=== PATIENT | male | born 1965 | race Caucasian/White ===

== ENCOUNTER → 2016-03-01 16:39 | Outpatient (CLI) | payer BC | END | disposition home or self-care (01) | LOC: D.LABREF 16:39 | DX: J32.0 Chronic maxillary sinusitis (principal) ==

== ENCOUNTER → 2016-03-18 12:32 | Outpatient (CLI) | payer BC | END | disposition home or self-care (01) | LOC: D.CT 12:32 | DX: I77.819 Aortic ectasia, unspecified site (principal) ==

== ENCOUNTER 2016-06-06 18:41 | Emergency (ER) | payer BC | END 2016-06-06 20:57 | disposition home or self-care (01) | LOC: D.ER 18:41 | DX: J06.9 Acute upper respiratory infection, unspecified (principal); J20.9 Acute bronchitis, unspecified; B34.9 Viral infection, unspecified; J43.9 Emphysema, unspecified ==

== ENCOUNTER 2016-06-09 15:37 | Inpatient (IN) | payer BC ==
[~2016-06-09] VITALS: Ht 180.3 cm; Wt 86.4 kg
--- NOTE | ~2016-06-09 | DS ---
PATIENT:FELIZ DENIS :65 MEDICAL RECORD: [id number] DISCHARGE SUMMARY ADMISSION DATE: 06/09/16 DISCHARGE DATE: 06/12/16 DISCHARGE DIAGNOSES: 1. DRESS syndrome. 2. Acute sulfonamide reaction. 3. Chronic obstructive pulmonary disease. 4. Pulmonary hilar lymphadenopathy, eosinophilia, cough-variant asthma, gastroesophageal reflux disease, febrile illness, resolved, hypertension, HLD, anemia. CONSULTANTS: Dr. Hastings ID, Dr. Gomez, pulmonary. HOSPITAL COURSE: A 50-year-old male admitted with severe cutaneous macular rash sparing palms and soles. Cough, 101 fever, abnormal chest x-ray. The patient appeared acutely ill on admission, was culture blood and urine, hydrated. He was seen by pulmonary and initially placed on broad-spectrum IV antibiotics. CT of the chest showed bilateral hilar adenopathy that was new from previous study. He was placed on high dose IV Solu-Medrol, seen in consultation by Dr. Hastings from infectious disease. She felt the patient could have delayed reaction to sulfonamide he had received a month prior to admission. Antibiotics were discontinued. The patient remained on IV steroids, has gradually improved. Interpretation of CT scan showed multiple pretracheal lymph nodes up to 8 mm in size, right hilar lymph nodes measuring 3.6 cm in size, left hilar nodes were 3cm in size, subcarinal node that was 5.8 cm in size with some atelectasis in the lung as well. In light of this, Dr. Bridges from CV surgery was consulted and he is aware of the patient. Our plan is to continue steroids for the next several weeks and repeat a CT of his chest in 4-6 weeks. Adenopathy is not resolved. We will proceed with a mediastinoscopy, biopsy of the paratracheal node. His lab today shows a white count of 14,000, H&H of 10.8 and 30.6. Chemistry is normal. Potassium is 3.7, corrected from 3.3. Blood sugar is 164 on steroids. Liver functions are normal. C-reactive protein was 23.5. Sed rate was 120 on admission. Urinalysis was negative. Microbiology showed blood and urine cultures negative. The patient was discharged today in improved condition on high dose steroids, followup with my office in [address] Gomez in [address] scan at that time. DISCHARGE MEDICATIONS: Are Ro 180 mg p.o. daily, nystatin oral suspension 5 cc swish and swallow q.i.d. for 10 days, Atarax 25 mg q. 6 hours p.r.n. itching, Restoril 15 mg p.o. h.s. p.r.n. sleep, prednisone 40 mg p.o. q. a.m., Cozaar 100 mg a day, pravastatin 80 mg at bedtime, guaifenesin with codeine 1-2 teaspoons q. 6 hours for severe cough, Tessalon Perles 100 mg t.i.d. p.r.n. cough, Singulair 10 mg at h.s., Proventil HFA rescue inhaler, DuoNeb updrafts q. 6 hours p.r.n., TriCor 145 mg daily, Prevacid 30 mg b.i.d., Dulera 100/5 two puffs b.i.d. DIET: Low cholesterol. ACTIVITY: Off work for 1 week. See me next Tuesday a.m. TRANSINT:[id number] Voice Confirmation ID: [id number] DOCUMENT ID: [id number] DISCHARGE SUMMARY REPORT [id number] FELIZ DENIS TIMOTHY MD CC: [id number] DICTATION DATE: 06/12/16 0804 FUR POINTER: 06/12/16 1446 DIS IN 06/12/16 [facility] [address] [id number]
--- NOTE | ~2016-06-09 | HP ---
PATIENT: FELIZ DENIS MEDICAL RECORD: [id number] ACCOUNT: [id number] LOCATION:[facility] : [birth year] ADMISSION DATE: 06/09/16 HISTORY AND PHYSICAL EXAMINATION REASON FOR ADMISSION: Fever, cough and rash. HISTORY OF PRESENT ILLNESS: 50-year old white male with COPD. Over the last year he has had chronic cough and exertional shortness of breath. He has seen a pulmonologisgt in [place], [place] who diagnosed him with COPD. He had also been treated for recurrent sinusitis by Dr. Yared Weinstein with 1 month of doxycycline and 1 month of Bactrim-DS that ended a month ago. Bryce says he had an abnormal CT scan of his sinus but those results are not available. None the less he developed a puritic rash on his hands and trunk about a week ago associated with cough and 101 fever for the last 4 days. His cough had increased. He was prescribed Phenergan with codeine for cough. A chest x-ray showed patchy perihilar densities a few days ago. He has not had any antibiotics recently. He symptoms have progressed and is seen in the office for this reason today. The patient appeared obviously ill, was febrile and had coke colored urine. He is admitted to the hospital for perihilar pneumonia, fever, atypical rash with pulmonary and ID workup. He has had some nausea but no vomiting or diarrhea. Denies any recent tick bites, exposure to wild rodents or animals. He used to smoke with over a 60 pack year history, but quit 9 years ago. PAST MEDICAL HISTORY: Essential hypertension, allergic rhinitis, COPD, hyperlipidemia, hypogonadism, history of anxiety and depression. History of proteinuria. PAST SURGICAL HISTORY: Negative. FAMILY HISTORY: Father had CAD. Brother age 55, had heart disease. Mother appearing in good health. SOCIAL HISTORY: He does not use alcohol. 60 plus pack year history of smoking, quit 9 years ago. 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 ALLERGIES: AMOXICILLIN, EGGS, HYDROCODONE, AND LISINOPRIL CAUSES COUGH. MEDICATIONS: Singulair 10 mg with evening meal, Flonase nasal spray daily, Zyrtec 10 mg a day, losartan 100/25 mg 1 p.o. q.a.m., fenofibrate 145 mg p.o. daily, ProAir HFA 1-2 puffs q.6 hours p.r.n., Bromfed syrup for cough one t.i.d. p.r.n. cough, lansoprazole capsule 30 mg p.o. daily. REVIEW OF SYSTEM: VITAL SIGNS: Temperature 101 degrees Fahrenheit for the few days. GENERAL: He has felt fatigued with poor appetite. HEENT: No recent visual change, sinus congestion, or sore throat or hearing difficulty. RESPIRATORY: Dry cough, minimally productive. He has been short of breath on exertion. He has noticed some wheezing as well. GASTROINTESTINAL: He has had nauses without vomiting or diarrhea. He has dyspepsia chronically. ENDOCRINE: Denies polyuria, polydipsia, heat or cold intolerance. MUSCULOSKELETAL: Has had arthralgias in his low back since fever occurred. HISTORY AND PHYSICAL [id number] FELIZ DENIS : Nocturia once nightly. Admits to ED issues. PSYCH: No depressed mood currently. NEUROLOGICAL: Has intermittent headache but not severe. Denies any motor sensory deficits or numbness. PHYSICAL EXAMINATION: VITAL SIGNS: Temperature is 100 degrees Fahrenheit orally, weight 193 pounds and 6 ounces, 5 feet 11-1/2 inches, BMI 26.6. GENERAL: The patient appears somewhat ill. He is alert and oriented. HEENT: Normocephalic. Eyes are clear and noninjected. Oropharynx shows erythema of posterior pharynx, no exudate. Ears clear. NECK: No adenopathy or bruits. Supple. CHEST: Bilateral wheezing without rales. HEART: Tachycardic without murmur or gallop. ABDOMEN: Soft, nontender. : Unremarkable. RECTAL: Deferred. EXTREMITIES: No CCE. INTEGUMENT: He has a diffuse vesicular pink to red blanching rash on abdomen, thighs, arms and legs, sparing palms and soles. No petechiae is noted. Office lab work and chest x-ray with perihilar patchy densities, change from previous. White count is 12,000 with left shift, H&H 11.6 and 33.3 with normal MCV. BUN and creatinine of 15 and 0.9. Urinalysis showed proteinuria, glycosuria and bilirubinemia. ASSESSMENT: 1. Perihilar pneumonia versus adenopathy. 2. Febrile illness. 3. COPD with exacerbation. 4. Diffuse cutaneous puritic rash, etiology unknown. 5. History of hypertension. 6. Anemia. 7. Recent sinusitis. PLAN: The patient is admitted for blood and urine cultures. Will be placed on broad spectrum IV antibiotics. I have talked with Patricia from pulmonary and he agrees with current managment. We will also have ID consult. Further work up to follow. TRANSINT:[id number] Voice Confirmation ID: [id number] DOCUMENT ID: [id number] MERLYN HALL MD CC: [id number] DICTATION DATE: 06/09/162100 STITCHER AROUND: 06/09/162230 ADM IN [facility] [address] [id number]
--- NOTE | 2016-06-09 16:06 | NUR ---
RECIVED TO ROOM 2217 AT THIS TIME VIA WHEELCHAIR WITH FAMILY AT BEDSIDE. WILL CONTINUE WITH PLAN OF CARE. ADMISSION AND HISTORY PERFORMED PER FLOWSHEET. CALL LIGHT IN REACH.
[2016-06-09] MEDS ORDERED: PROMETHAZINE W473 M1 PO (17:36)
[2016-06-09] MEDS ORDERED: ATARAX 25 MG TA25 MG PO (17:37)
[2016-06-09] MEDS ORDERED: IOPHEN-C NR LI473 ML PO (17:37)
[2016-06-09] MEDS ORDERED: BROMFED-DM COU473 ML PO (17:37)
[2016-06-09] MEDS ORDERED: SINGULAIR10 MG PO (17:38)
[2016-06-09] MEDS ORDERED: ALBUTEROL2.5 MG/3 M INH (17:38)
[2016-06-09] MEDS ORDERED: NYSTATIN ORAL SU5 ML PO (17:38)
[2016-06-09] MEDS ORDERED: TESSALON PERLE100 MG PO (17:38)
[2016-06-09] MEDS ORDERED: TRICOR145 MG PO (17:39)
[2016-06-09] MEDS ORDERED: NYSTATIN1 PWD TOPICAL (17:39)
[2016-06-09] MEDS ORDERED: HYZAAR 100-25 T1 TAB PO (17:39)
[2016-06-09] MEDS ORDERED: PREVACID30 MG PO (17:44)
[2016-06-09] MEDS ORDERED: PROVENTIL HFA6.7 GM INH (17:45)
[2016-06-09] MEDS ORDERED: DULERA 100 MCG8.8 GM INH (17:46)
[2016-06-09 17:48] VITALS: BP 112/70; Ht 180.3 cm; Wt 86.4 kg
[2016-06-09 18:30] LABS: BASOPHILS 0.1 % (0.0-2.0); EOSINOPHILS 18.2 % (0-7); HEMATOCRIT 33.3 % (42.0-54.0); HEMOGLOBIN 11.6 g/dL (13.5-17.5); IMMATURE GRANULOCYTES 0.9 % (0-5); LYMPHOCYTES 8.3 % (15-50); MCH 31.3 pg (26.0-34.0); MCHC 34.8 g/dL (31.0-37.0); MCV 89.8 fL (80.0-100.0); MONOCYTES 5.9 % (2-11); NEUTROPHILS 66.6 % (40-80); PLATELET COUNT 185 10x3/uL (130-400); RBC 3.71 10x6/uL (4.20-6.10); RDW 13.5 % (11.5-14.5); WBC 9.1 10x3/uL (4.8-10.8)
[2016-06-09 20:00] VITALS: BP 131/65
--- NOTE | 2016-06-09 20:00 | NUR ---
ASSESSMENT PER FLOWSHEET. IV RESITED TO RT ARM RESUMED IV FLUIDS AND ANTIBIOTIC. FAMILY MEMBERS IN ROOM. SCD'S APPLIED TO BOTH LEGS. SR UP X2 CALL LIGHT WITHIN REACH. RED RASH NOTED TO ENTIRE BODY. VOIDED INURINAL UA SPECIMEN TAKEN TO LAB.
[2016-06-09 20:41] LABS: CREATININE - SERUM 0.9 mg/dL (0.6-1.3)
--- NOTE | 2016-06-09 21:00 | NUR ---
TO RADIOGOLY PER WC FOR CT SCAN.
[2016-06-09 21:08] LABS: APPEARANCE CLEAR (CLEAR); BILIRUBIN NEGATIVE (NEGATIVE); COLOR DK YELLOW (YELLOW); GLUCOSE NEGATIVE (NEGATIVE); KETONE NEGATIVE (NEGATIVE); LEUKOCYTE ESTERASE NEGATIVE (NEGATIVE); NITRITE NEGATIVE (NEGATIVE); PROTEIN TRACE mg/dL (NEGATIVE); SPECIFIC GRAVITY 1.015 (1.005-1.020)
--- NOTE | 2016-06-09 21:30 | NUR ---
RETURNED TO ROOM TO BED RESUMED IV FLUIDS REPLACED SCD'S FAN BROUGHT INTO ROOM FOR PT'S COMFORT. MEDS GIVEN PER MAR. AT BEDSIDE. PT STATED DOES NOT WANT TO BED WAKEN UP AFTER 2300 EXCEPT FOR VS AND MEDS. INFORMED RT TECH HIS DESIRE NOT TO HAVE 0300 UPDRAFT TX.
--- NOTE | 2016-06-09 23:47 | NUR ---
RESTING QUIETLY RESPIRATIONS WITH EASE AND UNLABORED. AT BEDSIDE.
[2016-06-10] VITALS: BP 110/62
[2016-06-10 04:00] VITALS: BP 122/77
--- NOTE | 2016-06-10 04:29 | NUR ---
EYES CLOSED RESPIRATIONS WITH EASE AND UNLABORED.
--- NOTE | 2016-06-10 06:10 | NUR ---
SHOWER TAKEN SELF CARE WITH [facility] CHANGED AMBULATED IN HALLWAY WITH . MEDS GIVEN PER APR. NO CHANGES IN ASSESSMENT
[2016-06-10 07:36] LABS: ERYTHROCYTE SEDIMENTATION RATE 120 mm/hr (0-20)
[2016-06-10 07:57] VITALS: BP 122/82
--- NOTE | 2016-06-10 08:00 | NUR ---
ASSESSMENT PER FLOW SHEET.PT WITHOUT DISTRESS.CALL LIGHT IN REACH.FAMILY AT BEDSIDE.
--- NOTE | 2016-06-10 08:00 | NUR ---
ASSESSMENT PER FLOW SHEET.PT WITHOUT DISTRESS.CALL LIGHT IN REACH.FALL PREVENTION IN PROGRESS.DOOR OPEN
--- NOTE | 2016-06-10 09:45 | NUR ---
BENADRYL ORDERED PER MAR WITH AM MEDS.REFUSES LOVENOX ORDERED.MONITOR
--- NOTE | 2016-06-10 10:00 | NUR ---
PREP STARTED ORDERED.PT DECLINING TO DRINK MUCH AT PRESENT.
--- NOTE | 2016-06-10 12:00 | NUR ---
SLEEPING WITHOUT DISTRESS.
--- NOTE | 2016-06-10 12:00 | NUR ---
TO MRI VIA WHEELCHAIR
[2016-06-10 12:20] VITALS: BP 119/76
--- NOTE | 2016-06-10 15:25 | NUR ---
Patient Name: FELIZ DENIS Admission Status: Urgent Accout number: [id number] Admission Date: 06-09-2016 : 1965 Admission Diagnosis: Attending: AMANDA Current LOS: 1 Anticipated DC Date: 06-14-2016 Planned Disposition: Home or Self Care Primary Insurance[id number] Discharge Planning Comments: CM MET WITH PATIENT REGARDING D/C NEEDS AND PLANS. PATIENT STATED HE LIVES WITH HIS (DELMAR) AND SHE WILL DRIVE HIM HOME AT DISCHARGE. PATIENT STATED THERE ARE NO STEPS OR STAIRS AT HIS HOME. PATIENT IS INDEPENDENT WITH HIS CARE AND HAS NO DME AT HOME. PATIENTS PCP IS DR. HALL AND PHARMACY IS [facility] [address]. PATIENT HAS NEVER HAD HOME HEALTH AND DOES NOT WANT IT AT DISCHARGE. CM WILL CONTINUE TO FOLLOW PATIENT WITH D/C NEEDS AND PLANS. PCP DR. [facility] [address]- [phone] DELMAR () [phone] Commercial Art Instructor: Ana Gu Is the patient Alert and Oriented? Yes 0 * How many steps to enter\exit or inside your home? 0 0 * PCP DR. HALL 0 * Pharmacy [facility] [address] 0 * Preadmission Environment Home with Family 0 * ADLs Independent 0 * Equipment None 0 * List name and contact numbers for known caregivers / representatives who currently or will assist patient after discharge: DELMAR () [phone] * Community resources currently utilized None 0 * Additional services required to return to the preadmission environment? Yes 0 * Can the patient safely return to the preadmission environment? Yes 0 * Has this patient been hospitalized within the prior 30 days at any hospital? No 0 Grand Total: 0
--- NOTE | 2016-06-10 15:42 | NUR ---
HAS AMBULATED IN HALLS X2 TODAY.FAMILY REMAINS AT BEDSIDE.CALL LIGHT IN REACH
--- NOTE | 2016-06-10 15:48 | NUR ---
HAS BEEN SLEEPY AFTER RETURNING FROM MRI.SLOWLY DRINKING SIPS OF PREP.FAMILY AT BEDSIDE.MONITOR
--- NOTE | 2016-06-10 17:37 | NUR ---
FAMILY AT BEDSIDE,WITHOUT DISTRESS.CALL LIGHT IN REACH
--- NOTE | 2016-06-10 19:30 | NUR ---
PT RECEIVED SITTING UP IN BED WITH SPOUSE AT BEDSIDE. ASSESSMENT COMPLETED, SEE SHIFT ASSESSMENT. PT DENIES PAIN AT THIS TIME. PT REQUESTS NOT TO BE WOKEN UP AFTER 2300. PT DENIES PAIN OR NEEDS AT THIS TIME. CALL LIGHT AND H2O IN PT REACH.
--- NOTE | 2016-06-10 21:00 | NUR ---
PT STATES WHILE UP AMBULATING AD MARGARETTE, PT USED RESTROOM IN [place] AWAY FROM MED SURG. UNABLE TO ACCURATELY MEASURE OUTPUT.
--- NOTE | 2016-06-10 21:30 | NUR ---
PT SITTING UP IN BED VISITING WITH SPOUSE AND TWO OTHER VISITORS. NO S/S OF DISTRESS NOTED. PT DENIES PAIN OR NEEDS AT THIS TIME. PLEASANT MOOD NOTED. PT NOTED TO BE UP WALKING HALLS PREVIOUSLY. CALL LIGHT AND H2O IN PT REACH.
--- NOTE | 2016-06-10 22:00 | NUR ---
PT NOTIFIED OF ORDERS TO RECEIVE URINE SPECIMEN FOR LABS. SUPPLIES FOR CLEAN CATCH URINE COLLECTION SUPPLIED TO PT. PT STATES, "I ALREADY USED THE BATHROOM WHILE I WAS UP WALKING AROUND. IF I GET UP AND GO TO THE BATHROOM TONIGHT, I WILL LET YOU KNOW."
--- NOTE | 2016-06-10 23:30 | NUR ---
PT RESTING IN BED WITH EYES CLOSED. NO S/S OF DISTRESS NOTED. CALL LIGHT AND H2O IN PT REACH.
[2016-06-10 23:39] VITALS: BP 117/60
--- NOTE | 2016-06-11 03:59 | NUR ---
RN NOTE: PT LYING IN SUPINE POSITION WITH EYES CLOSED AND UNLABORED BREATHING. IV IN RIGHT HAND PATENT WITH D5 1/2 HS W/ 10 K INFUSING AT 50 ML / HR. SPOUSE IS AT BEDSIDE. SIDE RAILS UP X2 FOR SAFETY.
[2016-06-11 05:50] LABS: BASOPHILS 0.3 % (0.0-2.0); EOSINOPHILS 0.8 % (0-7); HEMATOCRIT 30.6 % (42.0-54.0); HEMOGLOBIN 10.8 g/dL (13.5-17.5); LYMPHOCYTES 19.8 % (15-50); MCH 32.3 pg (26.0-34.0); MCHC 35.3 g/dL (31.0-37.0); MCV 91.6 fL (80.0-100.0); MEAN PLATELET VOLUME 10.6 fL (7.4-10.4); NEUTROPHILS 71.1 % (40-80); RBC 3.34 10x6/uL (4.20-6.10); RDW 14.3 % (11.5-14.5)
[2016-06-11 05:56] LABS: PLATELET COUNT 293 10x3/uL (130-400); WBC 14.4 10x3/uL (4.8-10.8)
[2016-06-11 06:26] LABS: ALBUMIN 2.6 g/dL (3.4-5.0); ALKALINE PHOSPHATASE 94 U/L (46-116); ALT (SGPT) 28 U/L (10-68); BILIRUBIN - DIRECT 0.12 mg/dL (0.00-0.30); BILIRUBIN - INDIRECT 0.38 mg/dL (0.00-1.00); CALC OSMOLALITY 271 mosm/kg (275-300); CALCIUM 8.3 mg/dL (8.5-10.1); CARBON DIOXIDE 23.4 mmol/L (21.0-32.0); CHLORIDE - SERUM 99 mmol/L (98-107); CREATININE - SERUM 0.9 mg/dL (0.6-1.3); GLUCOSE 164 mg/dL (74-106); POTASSIUM - SERUM 3.3 mmol/L (3.5-5.1); PROTEIN - SERUM 6.7 g/dL (6.4-8.2); SODIUM 133 mmol/L (136-145); UREA NITROGEN 18 mg/dL (7-18); eGFR NON AFRICAN AMERICAN > 90 mL/min (90-120)
[2016-06-11 08:04] VITALS: BP 116/66
[2016-06-11 08:21] LABS: IMMUNOGLOBULIN E 1133 IU/mL (0-100)
--- NOTE | 2016-06-11 08:36 | NUR ---
PT SEEN AND ASSESSED EARILER. NO COMPLAINTS AT PRESENT. FULL BODY RASH NOTED FROM NECK TO FEET-NO COMPLAINTS OF ITCHING OR SOB NOTED. AMBULATORY IN ROOM AND HALLWAY. URINE SPECIMEN TO LAB ORDERED. CALL LIGHT IN REACH
[2016-06-11 10:18] LABS: IMMUNOGLOBULIN A 437 mg/dL (90-386); IMMUNOGLOBULIN G 1120 mg/dL (700-1600); IMMUNOGLOBULIN M 155 mg/dL (20-172)
--- NOTE | 2016-06-11 12:42 | NUR ---
DENIES NEEDS.CALL LIGHT IN REACH
[2016-06-11 12:45] VITALS: BP 113/70
--- NOTE | 2016-06-11 12:52 | NUR ---
WALKING WITH FAMILY.STATES GOING TO SIT OUTSIDE IN GARDEN.HE IS WITHOUT DISTRESS.
--- NOTE | 2016-06-11 13:24 | NUR ---
LEFT FLOOR VIA WHEELCHAIR FOR TRANSPORT TO [place]
--- NOTE | 2016-06-11 14:26 | NUR ---
HAS BEEN BACK FROM WALK.K ORDERED PER APR.PT NOT VERY PLEASED.WANTS TO NAP.
[2016-06-11 16:10] VITALS: BP 120/71
--- NOTE | 2016-06-11 18:54 | NUR ---
REMAINS WITHOUT NEEDS,WITHOUT CHANGE.STILL REQUEST NOT BE DISTURBED TONIGHT.ALSO WISHES TO REMAIN DICONNECTED FROM IV.
--- NOTE | 2016-06-11 19:30 | NUR ---
PT RECEIVED SITTING UP IN BED VISITING WITH SPOUSE. ASSESSMENT COMPLETE, SEE SHIFT ASSESSMENT. PT DENIES PAIN OR NEEDS. PT VOICED THAT HE DOES NOT WANT TO BE DISTURBED AFTER 2300 FOR VITALS, LABS, OR MEDICATIONS. CALL LIGHT AND H2O IN PT REACH. SIDE RAILS UP X2. BED IN LOW POSITION. IV CURRENTLY SALINE LOCKED, PT REFUSES IV FLUIDS AT THIS TIME.
[2016-06-11 20:33] VITALS: BP 147/89
[2016-06-11 22:08] LABS: CYCLIC CITRULL PEPTIDE IGG/IGA 10 units (0-19)
[2016-06-12 00:17] VITALS: BP 136/75
--- NOTE | 2016-06-12 02:30 | NUR ---
PT UP AND OUT OF ROOM. REQUESTS TO HAVE LABS DRAWN. CALLED LAB AND SPOKE WITH JEANNINE ABOUT PT REQUESTING LABS TO BE DRAWN NOW. ALSO INFORMED OF DR. VIGIL'S NOTE ABOUT HUMAN HERPES 6 AND 7. JEANNINE STATED THAT HUMAN HERPES 6 SERUM TEST IS AVAILABLE BUT SHE WILL HAVE TO CALL [facility] IN THE MORNING ABOUT HUMAN HERPES 7 VIRUS.
[2016-06-12 05:13] LABS: RAPID PLASMA REAGIN Non Reactive (Non Reactive)
--- NOTE | 2016-06-12 05:30 | NUR ---
PT IS LYING IN BED AWAKE AND HIS IS ASLEEP ON A BED IN THE FLOOR. HE HAS A SIGN ON THE DOOR TELLING STAFF NOT TO BOTHER HIM UNTIL 0730. RESPIRATIONS ARE GOOD AND NO DISTRESS IS NOTED. BED IS LOW, RAILS UP X'S 2 WITH THE CALL LIGHT AT HAND.
--- NOTE | 2016-06-12 07:50 | NUR ---
PATIENT RECEIVED SITTING UP ON SIDE BED ALERT. RESPIRATIONS EVEN AND UNLABORED. ANTICIPATING D/C HOME. AT BEDSIDE. BED IN LOW POSITION. CALL LIGHT IN REACH.
[2016-06-12] MEDS ORDERED: FEXOFENADINE H180 MG PO (07:51)
[2016-06-12] MEDS ORDERED: NYSTATIN ORAL SU5 ML PO (07:52)
[2016-06-12] MEDS ORDERED: RESTORIL15 MG PO (07:53)
[2016-06-12] MEDS ORDERED: ATARAX 25 MG TA25 MG PO (07:53)
[2016-06-12] MEDS ORDERED: PREDNISONE20 MG PO (07:54)
[2016-06-12] MEDS ORDERED: PRAVACHOL80 MG PO (07:58)
[2016-06-12] MEDS ORDERED: COZAAR100 MG PO (07:58)
--- NOTE | 2016-06-12 08:20 | NUR ---
PATIENT UP AMBULATING IN HALLWAY. STATES "I'M LEAVING AT 9:00" PAGED PLACED TO DR ARREOLA'S NURSE. WILL AWAIT CALL BACK
[2016-06-12 08:24] VITALS: BP 137/83
--- NOTE | 2016-06-12 09:00 | NUR ---
IV TO RIGHT HAND D/C WITH CATH TIP INTACT. SITE COVERED WITH GAUZE AND BANDAID
--- NOTE | 2016-06-12 09:10 | NUR ---
PATIENT D/C HOME WITH . D/C TEACHING AND PAPER PRESCRIPTION PROVIDED. REFUSES WHEELCHAIR. AMBULATED OFF UNIT.
[2016-06-12 16:09] LABS: ANA REFLEX - DIRECT Negative (Negative)
[2016-06-14 11:13] LABS: CRYPTOCOCCUS AG - SERUM Negative (Negative)
[2016-06-14 12:11] LABS: EBV - EARLY ANTIGEN AB IGG 12.2 U/mL (0.0-8.9); EBV - NUCLEAR ANTIGEN AB IGG >600.0 U/mL (0.0-17.9); EBV VIRAL CAPSID AB IGM <36.0 U/mL (0.0-35.9)
[2016-06-14 16:12] LABS: ANCA - ANTIMYELOPEROXIDASE <9.0 U/mL (0.0-9.0); ANCA - ANTIPROTEINASE 3 <3.5 U/mL (0.0-3.5); ANCA - ATYPICAL <1:20 titer (Neg:<1:20); ANCA - CYTOPLASMIC <1:20 titer (Neg:<1:20); ANCA - PERINUCLEAR <1:20 titer (Neg:<1:20)
[2016-06-14 16:12] LABS: EHRLICHIA CHAFF IGG Negative (Neg:<1:64); EHRLICHIA CHAFF IGM Negative (Neg:<1:20); HGE IGG TITER Negative (Neg:<1:64); HGE IGM TITER Negative (Neg:<1:20)
[2016-06-14 22:07] LABS: RMSF IGM 0.34 index (0.00-0.89)
[2016-06-15 13:15] LABS: F. TULARENSIS - IGG Negative (()); F. TULARENSIS - IGM Negative (())
== END 2016-06-12 09:27 | disposition home or self-care (01) | DRG 607 ==
LOC: D.MS 15:37
PROVIDERS: Internal Medicine Pulmonary Disease; Student in an Organized Health Care Education/Training Program; ADMIT Family Medicine
DX: L27.0 Generalized skin eruption due to drugs and medicaments taken internally (principal); T37.0X5A Adverse effect of sulfonamides, initial encounter; R59.0 Localized enlarged lymph nodes; R55 Syncope and collapse; J44.9 Chronic obstructive pulmonary disease, unspecified; J45.998 Other asthma; D72.1 Eosinophilia; I10 Essential (primary) hypertension; E78.5 Hyperlipidemia, unspecified; D64.9 Anemia, unspecified; J32.9 Chronic sinusitis, unspecified; K21.9 Gastro-esophageal reflux disease without esophagitis

== ENCOUNTER → 2016-07-16 08:29 | Outpatient (CLI) | payer BC ==
[2016-06-09 17:48] VITALS: BMI 26.5
[~2016-07-16 08:29] MED LIST: ALBUTEROL2.5 MG/3 M INH; ATARAX 25 MG TA25 MG PO; BROMFED-DM COU473 ML PO; COZAAR100 MG PO; DULERA 100 MCG8.8 GM INH; FEXOFENADINE H180 MG PO; HYZAAR 100-25 T1 TAB PO; IOPHEN-C NR LI473 ML PO; NYSTATIN ORAL SU5 ML PO; NYSTATIN1 PWD TOPICAL; PRAVACHOL80 MG PO; PREDNISONE20 MG PO; PREVACID30 MG PO; PROMETHAZINE W473 M1 PO; PROVENTIL HFA6.7 GM INH; RESTORIL15 MG PO; SINGULAIR10 MG PO; TESSALON PERLE100 MG PO; TRICOR145 MG PO
== END | disposition home or self-care (01) ==
LOC: D.CT 08:29
DX: R59.0 Localized enlarged lymph nodes (principal)

== ENCOUNTER → 2016-09-08 07:23 | Outpatient (CLI) | payer BC ==
[2016-06-09 17:48] VITALS: BMI 26.5
[2016-09-08 09:21] LABS: BASOPHILS 0.8 % (0-2); EOSINOPHILS 9.1 % (0-7); HEMATOCRIT 38.5 % (42.0-54.0); HEMOGLOBIN 12.8 g/dL (13.5-17.5); IMMATURE GRANULOCYTES 0.2 % (0-5); LYMPHOCYTES 25.9 % (15-50); MCH 31.1 pg (26.0-34.0); MCHC 33.2 g/dL (31.0-37.0); MCV 93.7 fL (80.0-100.0); MEAN PLATELET VOLUME 9.7 fL (7.4-10.4); MONOCYTES 9.9 % (2-11); NEUTROPHILS 54.1 % (40-80); RBC 4.11 10x6/uL (4.20-6.10); RDW 12.9 % (11.5-14.5); WBC 4.7 10x3/uL (4.8-10.8)
[2016-09-08 09:24] LABS: PLATELET COUNT 198 10x3/uL (130-400)
[2016-09-08 09:43] LABS: ALBUMIN 3.7 g/dL (3.4-5.0); BILIRUBIN - DIRECT 0.11 mg/dL (0.00-0.30); BILIRUBIN - INDIRECT 0.34 mg/dL (0.00-1.00); BILIRUBIN - TOTAL 0.45 mg/dL (0.2-1.3)
== END | disposition home or self-care (01) ==
LOC: D.RT 08-27 13:00
PROVIDERS: Internal Medicine Pulmonary Disease
DX: J44.9 Chronic obstructive pulmonary disease, unspecified (principal)

== ENCOUNTER → 2016-10-18 15:45 | Outpatient (CLI) | payer BC ==
[2016-06-09 17:48] VITALS: BMI 26.5
== END | disposition home or self-care (01) ==
LOC: D.LABREF 15:45 → D.ER 15:45
DX: J32.9 Chronic sinusitis, unspecified (principal)

== ENCOUNTER → 2017-03-01 11:34 | Outpatient (CLI) | payer BC ==
[2016-06-09 17:48] VITALS: BMI 26.5
[~2017-03-01 11:34] MED LIST changes: +LEVAQUIN500 MG PO; +SYMBICORT 16010.2 GM INH
[2017-03-01 12:30] LABS: BASOPHILS 0.2 % (0-2); EOSINOPHILS 0.5 % (0-7); HEMATOCRIT 36.6 % (42.0-54.0); HEMOGLOBIN 12.3 g/dL (13.5-17.5); IMMATURE GRANULOCYTES 0.6 % (0-5); MCH 30.9 pg (26.0-34.0); MCHC 33.6 g/dL (31.0-37.0); MONOCYTES 9.2 % (2-11); NEUTROPHILS 73.5 % (40-80); RBC 3.98 10x6/uL (4.20-6.10); WBC 12.7 10x3/uL (4.8-10.8)
[2017-03-01 12:32] LABS: PLATELET COUNT 382 10x3/uL (130-400)
== END | disposition home or self-care (01) ==
LOC: D.RAD 11:34
PROVIDERS: Internal Medicine Pulmonary Disease
DX: J45.909 Unspecified asthma, uncomplicated (principal)

== ENCOUNTER 2017-03-02 12:12 | Inpatient (IN) | payer BC ==
[~2017-03-02] VITALS: Ht 180.3 cm; Wt 86.4 kg
--- NOTE | ~2017-03-02 | HP ---
PATIENT: FELIZ DENIS MEDICAL RECORD: [id number] ACCOUNT: [id number] LOCATION:[address] : [birth year] ADMISSION DATE: 03/02/17 HISTORY AND PHYSICAL EXAMINATION REASON FOR ADMISSION: Fever and cough. HISTORY OF PRESENT ILLNESS: The patient is a 51-year-old male with history of cough-variant asthma, admitted in this hospital May 2016 for DRESS syndrome who presented with cough, congestion and fever for approximately a week. He was seen as outpatient, placed on doxycycline 100 mg b.i.d. without improvement in symptoms. Outpatient chest x-ray yesterday showing right lower lobe and somewhat of a left lower lobe infiltrate consistent with pneumonia. He had temperature over 101, for that reason, directly admitted to the hospital for treatment of failed outpatient community-acquired pneumonia. He has had no nausea, vomiting, cough has been minimally productive. He has had no hemoptysis. Denies diarrhea. PAST MEDICAL HISTORY: DRESS syndrome May 2016, sulfonamide reaction; COPD; cough-variant asthma; hilar lymphadenopathy; GERD; hypertension; anemia; hyperlipidemia; allergic rhinitis; hypogonadism; history of anxiety and depression; proteinuria. PAST SURGICAL HISTORY: Mediastinoscopy. FAMILY HISTORY: Father had CAD. Brother at age 55 had heart disease. Mother no active disease. SOCIAL HISTORY: Does not use alcohol. He was a 60+ pack year smoker, quit approximately 10 years ago. 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 ALLERGIES: SULFA, LISINOPRIL CAUSING COUGH, HYDROCODONE, EGGS, AMOXICILLIN. HOME MEDICATIONS: Singulair 10 mg with evening meal, doxycycline 100 mg b.i.d., losartan 100 mg p.o. daily, fenofibrate 145 mg p.o. daily, pravastatin 80 mg with evening meal, Ventolin inhaler q.4 hours p.r.n. REVIEW OF SYSTEMS: GENERAL: Fatigue with fever for the last week. Poor appetite. HEENT: No recent visual change, sinus congestion, sore throat or hearing difficulty. RESPIRATORY: Mild shortness of breath on exertion. He has had productive cough, but some yellow green sputum, no hemoptysis. CARDIAC: No exertional rest chest pain, claudication or edema. GASTROINTESTINAL: No nausea, vomiting, change in stools or blood per rectum. GENITOURINARY: Denies dysuria or nocturia trouble with the ED issues. ENDOCRINE: Denies polyuria, polydipsia, heat or cold intolerance. NEUROLOGIC: Denies headache, visual changes. Denies confusion sinus confusion. History of seizures or stroke. INTEGUMENT: No rash or itching. PSYCHIATRIC: Denies depressed mood currently. PHYSICAL EXAMINATION: VITAL SIGNS: Temperature 99.0 degrees Fahrenheit, pulse 109 regular, respirations are 20, blood pressure 130/75, sat 94% on room air. HISTORY AND PHYSICAL [id number] FELIZ DENIS GENERAL: Alert and oriented, not tachypneic. HEENT: Eyes are clear. Oropharynx unremarkable. NECK: Supple. CHEST: He has crackles in the right base. Left lung is clear. No wheezes are noted. HEART: Regular rate without murmur. ABDOMEN: Soft and nontender. PELVIC: Deferred. EXTREMITIES: No CCE. SKIN: No rash or icterus, good turgor. NEUROLOGICAL: Oriented to person, place, and time. Cranial nerves grossly intact. Gait is normal. LABORATORY DATA: White count 7800 with a normal diff, H&H is 12.2 and 36.2 respectively. Chemistry is normal. Glucose is 94. Chest x-ray shows compression deformities in the mid thoracic spine, basilar airspace disease, right greater than left and underlying COPD changes. ASSESSMENT: 1. Community-acquired pneumonia. 2. History of chronic obstructive pulmonary disease with cough-variant asthma. 3. Hypertension, hyperlipidemia, history of hilar adenopathy, drug reaction with eosinophilia and systemic symptoms syndrome. PLAN: The patient will be admitted, cultured and placed on IV Levaquin, Maxipime. Pulmonary consult with Dr. Gomez. Further workup pending clinical course. TRANSINT:[id number] Voice Confirmation ID: [id number] DOCUMENT ID: [id number] MERLYN HALL MD at 0747 CC: [id number] DICTATION DATE: 03/02/171743 KIER DRIER: 03/02/171945 ADM IN [id number] [place] [address]
[~2017-03-02 12:12] MED LIST changes: -LEVAQUIN500 MG PO; -SYMBICORT 16010.2 GM INH
[2017-03-02] MEDS ORDERED: SYMBICORT 16010.2 GM INH (13:41)
[2017-03-02 13:43] VITALS: BP 130/75; Ht 180.3 cm; Wt 86.4 kg
[2017-03-02 16:39] VITALS: BP 114/77
[2017-03-02 17:13] LABS: BASOPHILS 0.5 % (0-2); EOSINOPHILS 1.8 % (0-7); HEMATOCRIT 36.2 % (42.0-54.0); HEMOGLOBIN 12.2 g/dL (13.5-17.5); IMMATURE GRANULOCYTES 1.7 % (0-5); LYMPHOCYTES 28.4 % (15-50); MCH 30.7 pg (26.0-34.0); MCHC 33.7 g/dL (31.0-37.0); MCV 91.2 fL (80.0-100.0); MEAN PLATELET VOLUME 9.3 fL (7.4-10.4); MONOCYTES 9.3 % (2-11); NEUTROPHILS 58.3 % (40-80); PLATELET COUNT 391 10x3/uL (130-400); RBC 3.97 10x6/uL (4.20-6.10); RDW 12.9 % (11.5-14.5)
[2017-03-02 17:16] LABS: WBC 7.8 10x3/uL (4.8-10.8)
[2017-03-02 17:32] LABS: CALC OSMOLALITY 276 mosm/kg (275-300); CALCIUM 10.1 mg/dL (8.5-10.1); CARBON DIOXIDE 24.8 mmol/L (21.0-32.0); CHLORIDE - SERUM 102 mmol/L (98-107); POTASSIUM - SERUM 3.8 mmol/L (3.5-5.1); SODIUM 139 mmol/L (136-145); UREA NITROGEN 12 mg/dL (7-18); eGFR NON AFRICAN AMERICAN 84 mL/min (90-120)
[2017-03-02 17:41] LABS: GLUCOSE 84 mg/dL (74-106)
[2017-03-02 19:00] VITALS: BP 116/73
[2017-03-03] VITALS: BP 112/69
[2017-03-03 04:00] VITALS: BP 116/74
[2017-03-03 08:33] VITALS: BP 115/77
[2017-03-03 09:48] LABS: APPEARANCE CLEAR (CLEAR); BILIRUBIN NEGATIVE (NEGATIVE); COLOR YELLOW (YELLOW); GLUCOSE NEGATIVE (NEGATIVE); KETONE NEGATIVE (NEGATIVE); NITRITE NEGATIVE (NEGATIVE); PROTEIN NEGATIVE (NEGATIVE); SPECIFIC GRAVITY 1.015 (1.005-1.020); UROBILINOGEN NORMAL (NORMAL)
[2017-03-03 12:03] VITALS: BP 105/67
[2017-03-03 16:02] VITALS: BP 119/74
[2017-03-03 21:43] VITALS: BP 112/72
[2017-03-04 08:28] VITALS: BP 123/71
[2017-03-04 12:48] VITALS: BP 113/75
[2017-03-04 16:09] VITALS: BP 112/58
[2017-03-04 23:00] VITALS: BP 103/63
[2017-03-05 08:00] VITALS: BP 121/70
[2017-03-05 12:00] VITALS: BP 117/91
[2017-03-05 16:00] VITALS: BP 135/74
[2017-03-05 21:36] VITALS: BP 109/77
[2017-03-06 01:29] VITALS: BP 140/62
[2017-03-06] MEDS ORDERED: LEVAQUIN500 MG PO (10:17)
[2017-03-06] MEDS ORDERED: PREDNISONE20 MG PO (10:17)
[2017-03-06 10:22] VITALS: BP 133/83
== END 2017-03-06 13:28 | disposition home or self-care (01) | DRG 195 ==
LOC: D.SDCHOLD 12:12 → D.M2 12:30
PROVIDERS: Family Medicine
DX: J18.9 Pneumonia, unspecified organism (principal); K21.9 Gastro-esophageal reflux disease without esophagitis; J44.9 Chronic obstructive pulmonary disease, unspecified; K44.9 Diaphragmatic hernia without obstruction or gangrene; E78.5 Hyperlipidemia, unspecified; F32.9 Major depressive disorder, single episode, unspecified; G47.00 Insomnia, unspecified; J45.991 Cough variant asthma; J32.9 Chronic sinusitis, unspecified; R59.1 Generalized enlarged lymph nodes; R05 Cough

== ENCOUNTER → 2017-06-28 22:09 | Outpatient (CLI) | payer BC ==
[2017-03-02 13:43] VITALS: BMI 27.1
[~2017-06-28 22:09] MED LIST changes: +LEVAQUIN500 MG PO; +SYMBICORT 16010.2 GM INH
[2017-06-29 07:49] LABS: HEMATOCRIT 43.2 % (42.0-54.0); HEMOGLOBIN 13.8 g/dL (13.5-17.5); MCH 30.7 pg (26.0-34.0); MCHC 31.9 g/dL (31.0-37.0); MEAN PLATELET VOLUME 10.9 fL (7.4-10.4); PLATELET COUNT 284 10x3/uL (130-400); RDW 13.4 % (11.5-14.5); WBC 9.2 10x3/uL (4.8-10.8)
[2017-06-29 08:17] LABS: BASOPHILS 1 % (0-2); EOSINOPHILS 9 % (0-7); LYMPHOCYTES 47 % (15-50); MONOCYTES 4 % (2-11); NEUTROPHILS 39 % (40-80)
[2017-06-29 08:18] LABS: PLATELET ESTIMATE NORMAL; SMUDGE CELLS OCC
== END | disposition home or self-care (01) ==
LOC: D.LABREF 22:09
PROVIDERS: Internal Medicine Pulmonary Disease
DX: J45.998 Other asthma (principal)

== ENCOUNTER → 2017-12-05 15:37 | Outpatient (CLI) | payer BC ==
[2017-03-02 13:43] VITALS: BMI 27.1
== END | disposition home or self-care (01) ==
LOC: D.US 15:37
DX: M79.605 Pain in left leg (principal); R60.0 Localized edema

== ENCOUNTER → 2018-02-10 12:40 | Outpatient (CLI) | payer BC ==
[2017-03-02 13:43] VITALS: BMI 27.1
== END | disposition home or self-care (01) ==
LOC: D.US 12:40 → D.NM 02-17 08:00 → D.RAD 02-17 08:30 → D.US 02-17 09:00 → D.NM 02-17 13:00
DX: B37.81 Candidal esophagitis (principal); K31.89 Other diseases of stomach and duodenum; R12 Heartburn; R11.2 Nausea with vomiting, unspecified; K21.0 Gastro-esophageal reflux disease with esophagitis; R10.84 Generalized abdominal pain; R13.10 Dysphagia, unspecified

== ENCOUNTER 2018-02-22 08:19 | Day surgery (SDC) | payer BC ==
[~2018-02-22] VITALS: Ht 180.3 cm; Wt 95.5 kg
[2018-02-22] MEDS ORDERED: CLARITIN 10 MG10 MG PO ×2 (10:15→23:13)
[2018-02-22] MEDS ORDERED: ANORO ELLIPTA1 EACH INH ×2 (10:17→23:10)
[2018-02-22] MEDS ORDERED: COZAAR50 MG PO ×2 (10:19→23:13)
[2018-02-22] MEDS ORDERED: BISOPROLOL-HCT1 EAC1 PO (10:23)
[2018-02-22] MEDS ORDERED: ATROVENT 0.02%2.5 ML UPD (10:27)
[2018-02-22] MEDS ORDERED: AZELASTINE137 MCG/0. NASAL ×2 (10:29→23:12)
[2018-02-22 10:36] VITALS: BP 120/79; BMI 29.3
[2018-02-22 11:44] LABS: HEMATOCRIT 37.8 % (42.0-54.0); HEMOGLOBIN 12.9 g/dL (13.5-17.5); MCH 30.8 pg (26.0-34.0); MCHC 34.1 g/dL (31.0-37.0); MCV 90.2 fL (80.0-100.0); MEAN PLATELET VOLUME 10.2 fL (7.4-10.4); RBC 4.19 10x6/uL (4.20-6.10); RDW 13.2 % (11.5-14.5); WBC 5.9 10x3/uL (4.8-10.8)
--- NOTE | 2018-02-22 19:32 | NUR ---
1915 DR. VALADEZ ROUNDS, SURGERY CANCELLED FOR TODAY TO BE ADMITTED OVERNIGHT. 192 REPORT PHONED TO FLOOR, A SERVED.
--- NOTE | 2018-02-22 21:20 | HP ---
PATIENT: FELIZ DENIS MEDICAL RECORD: [id number] ACCOUNT: [id number] LOCATION:D.MS [place]2227 : 65 ADMISSION DATE: 02/22/18 PCP: MERLYN HALL MD HISTORY AND PHYSICAL EXAMINATION REASON FOR ADMISSION: Left upper quadrant abdominal pain, nausea and vomiting. HISTORY OF PRESENT ILLNESS: The patient is a 53-year-old male who has had dyspepsia and abdominal pain postprandially for the last several weeks. He denied fever. He has had some loose stools and bloating after eating. He was admitted to [facility] with intractable vomiting on 12/17/2017. He received IV fluids, held n.p.o. initially. He has seen Dr. Fagan previously with an EGD showing esophageal candidiasis and GERD. He had some blood streaked vomitus on admission with no melena and right upper quadrant tenderness. The patient gradually improved but still had trouble eating without pain. He was seen in consultation by Dr. Gu, general surgeon, who cleared the patient to go home to have follow-up cholecystectomy in the following week. Over the weekend, the patient had increasing nausea, vomiting and pain and is requested admission to [facility] for cholecystectomy. Dr. Reyes has been consulted concerning the case and agreed to admission. Previous ultrasound showed a fatty liver and PIPIDA scan at [place] showed 13% ejection fraction. PAST MEDICAL HISTORY: Asthma - followed by Dr. Gomez, history of enlarged aortic aneurysm, osteoarthritis, GERD, esophageal candidiasis, and hypertension. Hyperlipidemia. PAST SURGICAL HISTORY: He had heart catheterization, endoscopic ethmoidectomy on 10/21/2017 with antrostomy, maxillary, endoscopic. HOME MEDICATIONS: Benadryl 25 mg q. 6 hours for allergy, Bekah aspirin 325 mg a day, Anoro Ellipta inhaler 1 puff daily, DuoNeb updrafts q. 6 hours, Prevacid 30 mg p.o. daily, Zebeta 5 mg daily, Cozaar 50 mg daily, Astelin nasal spray 2 nasal sprays to each nostril b.i.d. p.r.n., Mycostatin swish and swallow 1 teaspoon p.o. a.c. and at bedtime, fenofibrate 145 mg p.o. daily, and Pravachol 80 mg at bedtime. ALLERGIES: SULFA CAUSING ANAPHYLAXIS, AMOXICILLIN CAUSING UPSET STOMACH. FAMILY HISTORY: Mother is living and in good health. SOCIAL HISTORY: Nonsmoker, nondrinker. 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 He is , nonsmoker, and nondrinker. REVIEW OF SYSTEMS: CONSTITUTIONAL: Denies fatigue but has had poor appetite and weight loss. No fever. HEENT: No recent visual change, sinus congestion, or sore throat. Has intermittent sneezing. CARDIAC: No chest pain, claudication, PND, orthopnea. RESPIRATORY: Has intermittent cough, nonproductive as of late. No hemoptysis. GASTROINTESTINAL: He has had nausea with intermittent vomiting, postprandial with abdominal bloating, cramping and loose stool, right upper quadrant pain. The ultrasound 2 weeks ago revealed fatty liver and normal gallbladder. PIPIDA scan showed 13% ejection fraction. HISTORY AND PHYSICAL [id number] FELIZ DENIS GENITOURINARY: Nocturia once nightly. No dysuria. MUSCULOSKELETAL: No arthralgias. Currently, has had lumbago in the past. ENDOCRINE: Denies polyuria, polydipsia, heat or cold intolerance. NEUROLOGIC: No history of vascular headaches or sensory deficits. PHYSICAL EXAMINATION: GENERAL: Alert 52-year-old male in mild distress due to pain. VITAL SIGNS: Temperature 99 degrees Fahrenheit orally, heart rate 90 and regular. Height is 5 feet 11 inches, weight is 205, blood pressure 137/89, O2 sat of 90% on room air, respirations are 16. HEENT: Normocephalic. Eyes are clear. Nasal turbinates are clear. CHEST: Faint expiratory wheezes on forced expiration bilaterally. No rales. HEART: Regular rate and rhythm without murmur. ABDOMEN: Soft, nontender in the epigastrium on the right without rebound. Bowel sounds are active. RECTAL: Deferred. EXTREMITIES: No CC and E. NEUROLOGICAL: Intact. LABORATORY DATA: Currently pending. ASSESSMENT: 1. Acute acalculous cholecystitis, symptomatic. 2. Nausea and vomiting secondary to above. 3. Asthma. 4. Essential hypertension. 5. Asymptomatic aortic aneurysm. PLAN: The patient has been discussed with Dr. Reyes who has agreed to proceed with cholecystectomy, pending his lab work. The patient was held n.p.o. and off aspirin for a week. TRANSINT:[id number] Voice Confirmation ID: [id number] DOCUMENT ID: [id number] MERLYN HALL MD at 2120 CC: [id number] DICTATION DATE: 02/22/18809 SILO ERECTOR: 02/22/18918 [facility] [address] [id number]
[2018-02-22] MEDS ORDERED: IPRAT-ALBUT 0.5-3 ML UPD (23:11)
[2018-02-22] MEDS ORDERED: PREVACID30 MG PO (23:15)
[2018-02-22] MEDS ORDERED: PRAVACHOL80 MG PO (23:15)
[2018-02-22] MEDS ORDERED: ALBUTEROL2.5 MG/3 M INH (23:19)
[2018-02-22] MEDS ORDERED: FLUTICASONE PRO16 GM NASAL (23:29)
[2018-02-23 04:00] VITALS: BP 123/77
[2018-02-23 04:25] VITALS: BP 137/87; Ht 180.3 cm; Wt 95.5 kg
--- NOTE | 2018-02-23 05:08 | NUR ---
2009) REC'D. TO ROOM 2227 THEN UP AMB WITH REINFORCED NPO AT [facility] IN AM VOICES UNDERSTANDING.2029) WANTS PATIENT TO HAVE MEDS THAT HE HASN'T HAD ALL DAY NOW THAT HE'S NOT HAVING SURGERY.EXPLAINED WILL HAVE TO CALL ADMITTING PHYSICIAN TO GET HOME MEDS RESTARTED. REQUEST THAT I CALL DR HALL OR DR VIGIL. EXPLAINED WILL HAVE TO CALL SURGEON OR YARITZA HAVE NOT BEEN CONSULTED.DR JIMENEZ IS PEDIATRIC MEDICAL ASSISTANT FOR DR. VALADEZ THIS PM.CALL PLACED TO DR JIMENEZ.2054) RETURN CALL FROM DR. JIMENEZ.ORDERS TO RESTART ORAL MEDS UPDRAFTS AND INHALERS.2129 NO ANSWER IN PHARMACY [facility] SUPPER CALL TO OBTAIN AND GET HOME MEDS STARTED REQUESTED NO RESPONSE. 2209) CALLED AGAIN NO RESPONSE. PATIENT ANGRY STATES I GOT A VALIUM IN OUTPATIENT FASTER THAN I CAN GET MY MEDS.EXPLAINED WHEN PHARMACY CLOSES WE HAVE TO CALL HOUSE SUPERVISIOR TO OBTAIN MEDS.STATES THAT IS SO DAMN STUPID BEEN TRYING TO GET MY MEDS FOR TWO HOURS.2229)[facility] LISSETH RHODES RN IN [facility] TO PATIENT BEING UPSET BECAUSE TAKING TOO LONG TO TO GET MEDS.ENTRY SPECIALIST HERE MEDS PULLED.TAKEN TO ROOM PATIENT REFUSED.
--- NOTE | 2018-02-23 08:10 | NUR ---
PATIENT GIVEN PRE-OP MEDS AND TAKEN TO OR, AND MOTHER AT BEDSIDE. IV NS INFUSING AT 125 VIA LEFT HAND.
[2018-02-23 09:00] VITALS: BP 111/88
[2018-02-23 12:00] VITALS: BP 130/75
[2018-02-23] MEDS ORDERED: COLACE100 MG PO (12:22)
[2018-02-23] MEDS ORDERED: HYDROCODON-ACE1 EAC7 PO (12:23)
--- NOTE | 2018-02-23 14:00 | NUR ---
ASSISTED NURSE IN STARTING DILAUDID RECREATIONAL THERAPY TECHNICIAN. PATIENT IN BED WITH IV INTACT. NO COMPLAINTS CALL LIGHT WITHIN REACH. VS STABLE.
[2018-02-23 16:00] VITALS: BP 120/76
--- NOTE | 2018-02-23 17:30 | NUR ---
PATIENT IN BED, SKIN W/D TO TOUCH, COLOR PINK, RESP. REGULAR AND EVEN AT 20. INCISION INTACT X'S 5 WITH BANDAIDS. AT BEDSIDE. IV NS INFUSING AT 100 VIA LEFT HAND. COMMERCIAL ART INSTRUCTOR DILAUDID HOLDING PATIENT WELL.C/L WITHIN REACH AND SR'S UP X'S 2. O2 AT 3 PRN.
[2018-02-23 20:00] VITALS: BP 119/75
[2018-02-24 04:00] VITALS: BP 116/71
--- NOTE | 2018-02-24 04:16 | NUR ---
PT SLEEPING, EASILY ROUSED TO A/OX4. BREATHING EVEN AND UNLABORED. DENIES NEEDS AT THIS TIME. WILL CONTINUE POC.
--- NOTE | 2018-02-24 05:54 | NUR ---
REC'D. AT SHIFT [facility].AMB IN HALLWAY WITH FITZ. WELL STATES HAS BEEN PASSING SOME GAS.WILL CONTINUE TO MONITOR FOR ANY CHGES. AND FOLLOW CURRENT PLAN OF CARE.ELECTRIC WHEELCHAIR REPAIRER DILAUDID IN PLACE FOR SELF PAIN CONTROL. WILL CONTINUE TO MONITOR FOR ANY CHGES.AND FOLLOW CURRENT PLAN OF CARE
--- NOTE | 2018-02-24 08:00 | NUR ---
PATIENT RESTING IN BED REPORTS INCISIONAL PAIN TOLERABLE WITH FLAT MACHINE CUTTER. BANDAIDS TO INCISIONS C/D/I. PATIENT VOICES THAT HE IS READY FOR DISCHARGE WHEN COMES TO PICK HIM UP
[2018-02-24 08:51] VITALS: BP 127/80
--- NOTE | 2018-02-24 09:32 | OP ---
PATIENT NAME: FELIZ DENIS MEDICAL RECORD: [id number] :65 LOCATION:D.MS [address].2227 ADMISSION DATE: SURGEON: VERNON VALADEZ MD DATE OF OPERATION: 02/23/2018 PREOPERATIVE DIAGNOSIS: Biliary dyskinesia. POSTOPERATIVE DIAGNOSIS: Biliary dyskinesia with hepatomegaly and adhesions to the gallbladder. PROCEDURES: 1. Laparoscopic cholecystectomy. 2. Intraoperative cholangiography without immediate surgeon interpretation. 3. A 14-gauge core-needle liver biopsy. SURGEON: Vernon Valadez MD BANQUET SUPERVISOR: None. BLOOD LOSS: Minimal. ANESTHESIA: General. COMPLICATIONS: None. The risks, possible complications, and alternatives to the procedure were explained to the patient. He elects to proceed. The discussion specifically included, but was not limited to, bleeding requiring emergency reoperation, infection, intestinal injury as well as common bile duct injury. The indications for the liver biopsy were hepatomegaly. OPERATIVE COURSE: The patient was conveyed to the operating room electively on 02/23/2018. General anesthesia was induced by the anesthesia staff. The abdomen was sterilely prepped and draped. A small skin alejo was accomplished in the left upper quadrant. A Veress needle was inserted through the skin alejo into the peritoneal cavity. CO2 insufflation was begun. An incision was accomplished within the umbilicus. There was a small umbilical hernia with some incarcerated fat. The incarcerated fat was excised with the electrocautery. Through the umbilical hernia, I advanced a 12-mm trocar. Under direct internal vision utilizing a television camera, a 5-mm trocar was inserted in the left upper quadrant and another 5-mm trocar was inserted in the epigastrium. Another 5-mm trocar was inserted far laterally in the right upper quadrant. During insertion of the Veress needle and all trocars, there appeared to have been no injury to the bowels, any intraperitoneal or retroperitoneal structures. Under laparoscopic guidance, I percutaneously accessed the right upper quadrant utilizing a 14-gauge core needle liver biopsy device. Cores were obtained over the convexity of the liver. The biopsy sites were made hemostatic with the electrocautery. OPERATIVE REPORT [id number] FELIZ DENIS I then advanced a cholangiogram trocar. I punctured the fundus of the gallbladder. I aspirated bile. I then injected dye. Under real-time fluoroscopy, static cholangiographic images were obtained and these are placed in the PACS system for the radiologist to interpret. I then aspirated bile and withdrew the cholangiogram trocar. The fundus of the gallbladder was grasped and retracted cephalad. Adhesions were taken down bluntly. Blunt dissection was begun on the triangle of Calot. Two cystic arteries and one cystic duct were identified. These were clipped multiply and divided between clips. The gallbladder was then excised from its bed in the liver. It was placed within a bag retrieval device and was withdrawn through the umbilical fascia defect. A 12-mm trocar was replaced and the abdomen reinsufflated. I irrigated and aspirated in the right upper quadrant. There was no bleeding even at low pressure of 8. All the trocars were removed and the abdomen desufflated. The umbilical defect was closed with a horizontal mattress 0 Vicryl suture. The umbilical skin was approximated with interrupted 4-0 Vicryl Rapide sutures. The other skin incisions were closed with interrupted intracuticular 3-0 Vicryls. Benzoin and Steri-Strips were applied. The patient was then extubated and conveyed to the post-anesthesia care unit where he was in stable condition. I am going to plan for him to be dismissed home later today on [place] and [place]. I will see him in the office in 2-3 weeks. TRANSINT:[id number] Voice Confirmation ID: [id number] DOCUMENT ID: [id number] VERNON VALADEZ MD at 0932 CC: [id number] DICTATION DATE: 02/23/18 174 DISTRIBUTION AGENT: 02/23/18 2221 [facility] [address] [place] [address]
--- NOTE | 2018-02-24 10:21 | NUR ---
IV REMOVED FROM LEFT WRIST WITH CATH INTACT, NO REDNESS OR EDEMA AT SITE. DISCHARGE INSTRUCTIONS GIVEN INCLUDING PRESCRIPTIONS FOR NORCO AND COLACE, WITH PATIENT VOICING UNDERSTANDING. PATIENT TAKEN BY WHEELCHAIR TO PRIVATE CAR
== END 2018-02-24 11:01 | disposition home or self-care (01) ==
LOC: D.OPS 08:19 → D.MS 08:19 → D.OPS 14:30 → D.MS 19:34 → D.OPS 02-24 11:01
PROVIDERS: Anesthesiology
DX: K81.1 Chronic cholecystitis (principal); K76.0 Fatty (change of) liver, not elsewhere classified; J45.909 Unspecified asthma, uncomplicated; M19.90 Unspecified osteoarthritis, unspecified site; K21.9 Gastro-esophageal reflux disease without esophagitis; I10 Essential (primary) hypertension; E78.5 Hyperlipidemia, unspecified; Z88.0 Allergy status to penicillin; Z88.2 Allergy status to sulfonamides; Z01.812 Encounter for preprocedural laboratory examination

== ENCOUNTER → 2019-03-29 07:39 | Outpatient (CLI) | payer BC ==
[2018-02-23 04:25] VITALS: BMI 29.3
[~2019-03-29 07:39] MED LIST changes: +ANORO ELLIPTA1 EACH INH; +ASA PO; +ATROVENT 0.02%2.5 ML UPD; +AZELASTINE137 MCG/0. NASAL; +BISOPROLOL-HCT1 EAC1 PO; +CLARITIN 10 MG10 MG PO; +COLACE100 MG PO; +COZAAR50 MG PO; +CRESTOR5 MG; +FLUTICASONE PRO16 GM NASAL; +HYDROCODON-ACE1 EAC7 PO; +IPRAT-ALBUT 0.5-3 ML UPD
== END | disposition home or self-care (01) ==
LOC: D.RT 01-22 09:00
PROVIDERS: ATTEND Internal Medicine Pulmonary Disease
DX: R55 Syncope and collapse (principal); I10 Essential (primary) hypertension; E78.5 Hyperlipidemia, unspecified; I51.7 Cardiomegaly; J45.909 Unspecified asthma, uncomplicated; K21.9 Gastro-esophageal reflux disease without esophagitis

== ENCOUNTER 2019-03-29 08:57 | Emergency (ER) | payer BC ==
[~2019-03-29] VITALS: Ht 180.3 cm; Wt 95.5 kg
[~2019-03-29 08:57] MED LIST changes: -ASA PO; -CRESTOR5 MG
[2019-03-29 09:01] VITALS: Ht 180.3 cm; Wt 95.5 kg
[2019-03-29] MEDS ORDERED: ASA PO (09:03)
[2019-03-29] MEDS ORDERED: CRESTOR5 MG (09:03)
[2019-03-29 09:28] LABS: BASOPHILS 0.6 % (0-2); EOSINOPHILS 4.1 % (0-7); HEMATOCRIT 42.6 % (42.0-54.0); HEMOGLOBIN 14.6 g/dL (13.5-17.5); IMMATURE GRANULOCYTES 0.2 % (0-5); LYMPHOCYTES 30.7 % (15-50); MCH 30.5 pg (26.0-34.0); MCHC 34.3 g/dL (31.0-37.0); MCV 88.9 fL (80.0-100.0); MEAN PLATELET VOLUME 9.8 fL (7.4-10.4); MONOCYTES 9.1 % (2-11); NEUTROPHILS 55.3 % (40-80); PLATELET COUNT 229 10x3/uL (130-400); RBC 4.79 10x6/uL (4.20-6.10); RDW 13.2 % (11.5-14.5); WBC 8.3 10x3/uL (4.8-10.8)
[2019-03-29 09:37] LABS: CALC OSMOLALITY 275 mosm/kg (275-300); CARBON DIOXIDE 28.9 mmol/L (21.0-32.0); CHLORIDE - SERUM 104 mmol/L (98-107); GLUCOSE 87 mg/dL (74-106); POTASSIUM - SERUM 4.2 mmol/L (3.5-5.1); SODIUM 140 mmol/L (136-145); UREA NITROGEN 8 mg/dL (7-18); eGFR NON AFRICAN AMERICAN 83 mL/min (90-120)
[2019-03-29 09:43] LABS: ALBUMIN 3.9 g/dL (3.4-5.0); ALKALINE PHOSPHATASE 107 U/L (30-120); ALT (SGPT) 34 U/L (10-68); BILIRUBIN - TOTAL 0.46 mg/dL (0.2-1.3); PROTEIN - SERUM 7.3 g/dL (6.4-8.2)
[2019-03-29 10:28] VITALS: BP 134/87
== END 2019-03-29 10:29 | disposition home or self-care (01) ==
LOC: D.ER 08:57
PROVIDERS: Family Medicine
DX: R55 Syncope and collapse (principal); I10 Essential (primary) hypertension; E78.5 Hyperlipidemia, unspecified; K21.9 Gastro-esophageal reflux disease without esophagitis; Q25.49 Other congenital malformations of aorta; Z99.81 Dependence on supplemental oxygen; J45.909 Unspecified asthma, uncomplicated

== ENCOUNTER 2019-08-24 08:56 | Inpatient (IN) | payer BC ==
[~2019-08-24] VITALS: Ht 180.3 cm; Wt 93.6 kg
[~2019-08-24 08:56] MED LIST changes: +ASA PO; +CRESTOR5 MG
[2019-08-24 09:13] LABS: HEMATOCRIT 41.9 % (42.0-54.0); HEMOGLOBIN 14.3 g/dL (13.5-17.5); LYMPHOCYTES 29.9 % (15-50); MCH 30.4 pg (26.0-34.0); MCHC 34.1 g/dL (31.0-37.0); MEAN PLATELET VOLUME 9.5 fL (7.4-10.4); NEUTROPHILS 61.9 % (40-80); RBC 4.71 10x6/uL (4.20-6.10); RDW 12.5 % (11.5-14.5); WBC 7.8 10x3/uL (4.8-10.8)
[2019-08-24 09:20] VITALS: BP 112/75
[2019-08-24 09:25] LABS: PLATELET COUNT 282 10x3/uL (130-400)
[2019-08-24 09:28] LABS: CALC OSMOLALITY 279 mosm/kg (275-300); CALCIUM 9.3 mg/dL (8.5-10.1); CARBON DIOXIDE 22.4 mmol/L (21.0-32.0); CHLORIDE - SERUM 102 mmol/L (98-107); CREATININE - SERUM 1.2 mg/dL (0.6-1.3); POTASSIUM - SERUM 3.1 mmol/L (3.5-5.1); SODIUM 138 mmol/L (136-145); UREA NITROGEN 10 mg/dL (7-18); eGFR NON AFRICAN AMERICAN 67 mL/min (90-120)
[2019-08-24 09:29] LABS: APTT 32.9 SECONDS (22.8-39.4); INR 0.98 (0.85-1.17); PROTIME 12.9 SECONDS (11.6-15.0)
[2019-08-24 09:38] LABS: GLUCOSE 191 mg/dL (74-106)
[2019-08-24 09:43] LABS: ALBUMIN 4.3 g/dL (3.4-5.0); ALKALINE PHOSPHATASE 102 U/L (30-120); ALT (SGPT) 41 U/L (10-68); BILIRUBIN - TOTAL 0.64 mg/dL (0.2-1.3); CREATINE KINASE 169 UL (21-232); PROTEIN - SERUM 7.8 g/dL (6.4-8.2)
[2019-08-24 09:46] LABS: TROPONIN-I < 0.017 ng/mL (0.000-0.060)
[2019-08-24 09:51] VITALS: BP 120/76
--- NOTE | 2019-08-24 10:11 | NUR ---
PT STATES HE DOES NOT LIKE THE MORPHINE. DOES NOT LIKE THE WAY IT MAKES HIM FEEL.
[2019-08-24 13:58] VITALS: BP 140/89; BMI 27.9
[2019-08-24 15:48] VITALS: BP 140/89
[2019-08-24 16:46] LABS: CKMB 1.7 U/L (0.0-3.6); CREATINE KINASE 115 UL (21-232)
[2019-08-24 16:47] LABS: TROPONIN-I < 0.017 ng/mL (0.000-0.060)
[2019-08-24 17:33] VITALS: Ht 180.3 cm; Wt 93.6 kg
--- NOTE | 2019-08-24 20:00 | NUR ---
REPORT RECIEVED AND INITIAL ROUNDS COMPLETED. CALL LIGHT IN REACH.
[2019-08-24 21:10] VITALS: BP 139/82
[2019-08-24 21:45] LABS: CKMB 1.7 U/L (0.0-3.6); CREATINE KINASE 107 UL (21-232); TROPONIN-I < 0.017 ng/mL (0.000-0.060)
--- NOTE | 2019-08-24 23:00 | NUR ---
PT TEACHING ON NPO AFTER MIDNIGHT. REVIEWED AND SIGNED CONSENTS FOR AM HEART CATH PER DR MUÑIZ.
--- NOTE | 2019-08-25 00:15 | NUR ---
PT REFUSED VITAL SIGNS SAYING HE DID NOT WANT TO BE AWAKENED UNTIL LATE AM FOR LABS. VERY AGITATED WHEN "BOTHERED" BY STAFF INTERVENTIONS.
[2019-08-25 04:13] LABS: BASOPHILS 0.5 % (0-2); HEMATOCRIT 37.6 % (42.0-54.0); HEMOGLOBIN 12.4 g/dL (13.5-17.5); IMMATURE GRANULOCYTES 0.2 % (0-5); MCH 30.3 pg (26.0-34.0); MCV 91.9 fL (80.0-100.0); MEAN PLATELET VOLUME 9.6 fL (7.4-10.4); MONOCYTES 9.1 % (2-11); NEUTROPHILS 50.2 % (40-80); PLATELET COUNT 197 10x3/uL (130-400); RBC 4.09 10x6/uL (4.20-6.10); RDW 12.9 % (11.5-14.5); WBC 4.3 10x3/uL (4.8-10.8)
[2019-08-25 04:47] LABS: ALBUMIN 3.4 g/dL (3.4-5.0); ALKALINE PHOSPHATASE 80 U/L (30-120); BILIRUBIN - TOTAL 0.36 mg/dL (0.2-1.3); CALC OSMOLALITY 282 mosm/kg (275-300); CALCIUM 8.2 mg/dL (8.5-10.1); CHLORIDE - SERUM 108 mmol/L (98-107); CKMB 1.2 U/L (0.0-3.6); CREATINE KINASE 88 UL (21-232); CREATININE - SERUM 0.9 mg/dL (0.6-1.3); GLUCOSE 149 mg/dL (74-106); POTASSIUM - SERUM 3.3 mmol/L (3.5-5.1); PROTEIN - SERUM 6.2 g/dL (6.4-8.2); SODIUM 141 mmol/L (136-145); UREA NITROGEN 9 mg/dL (7-18); eGFR NON AFRICAN AMERICAN > 90 mL/min (90-120)
[2019-08-25 04:54] VITALS: BP 127/75
[2019-08-25 04:57] LABS: ALT (SGPT) 30 U/L (10-68); CARBON DIOXIDE 28.1 mmol/L (21.0-32.0); TROPONIN-I < 0.017 ng/mL (0.000-0.060)
[2019-08-25 08:56] VITALS: BP 124/80
--- NOTE | 2019-08-25 09:51 | HP ---
PATIENT: TRISTON DENIS MEDICAL RECORD: [id number] ACCOUNT: [id number] LOCATION:[address] : [birth year] ADMISSION DATE: 08/24/19 PCP: MERLYN HALL MD HISTORY AND PHYSICAL EXAMINATION REASON FOR ADMISSION: Chest pain and diaphoresis. HISTORY OF PRESENT ILLNESS: The patient is a 53-year-old male with history of essential hypertension, hyperlipidemia and reactive airways disease. The patient states he had been in good state of health until this morning. He was in his office, talking to an employee and he broke out in a cold sweat, developed a tight substernal chest discomfort that radiated to his upper scapula. He developed nausea without vomiting. He came immediately to the Emergency Room for evaluation. Once Triston was given aspirin, nitroglycerin and morphine in succession he said his symptoms gradually improved. He is now symptom free. He denies any recent fatigue, exertional or rest chest pain prior to this. Denies any fatty food intolerance. In fact, he has had his gallbladder out 2 years ago without symptoms. He does have a past history of Janice esophagitis, but states he has had no symptoms recently. He is followed by Dr. Sy at [facility] clinic due to an incidental thoracic aneurysm 4.2 cm is noted on heart catheterization, 03/15/2016. His catheterization at that time showed all coronaries were normal, normal LV function and EF of 60%. PAST MEDICAL HISTORY: Thoracic aneurysm, unchanged; osteoarthritis; asthma; GERD with history of Janice esophagitis; essential hypertension; sinusitis; hyperlipidemia. PAST SURGICAL HISTORY: Heart cath in 2017, normal except for thoracic aneurysm 4.2 cm; endoscopic sinus surgery in 2018 with partial ethmoidectomy, cholecystectomy. FAMILY HISTORY: Father of heart attack at age 58. 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 He is a lifelong nonsmoker and nondrinker. ALLERGIES: SULFA, AMOXICILLIN. HOME MEDICATIONS: Lansoprazole 30 mg a day, albuterol nebulizer every 6 hours, losartan 50 mg a day, Ziac 5 mg p.o. every morning, Crestor 20 mg at bedtime, Flonase nasal spray daily, aspirin 325 mg daily, Singulair 10 mg at bedtime, ProAir HFA p.r.n., Symbicort 80 two puffs daily, ipratropium bromide HFA 2 puffs 4 times a day, vitamin D 1.25 mg daily, vitamin C 1000 mg daily, zinc 100 mg daily, multivitamin 1 daily, fenofibrate 145 mg daily. REVIEW OF SYSTEMS: GENERAL: No recent fever or fatigue. HEENT: No recent visual change, sinus congestion, or sore throat. RESPIRATORY: Denies exertional shortness of breath, no recent increase in cough, and has not been fairly stable. He did have some shortness of breath with episode today. CARDIAC: Rest chest pain occurring this morning associated with diaphoresis, nausea and shortness of breath, radiating into his upper scapula. Last until he came to the ER and had resolution with aspirin, nitroglycerin and morphine. No HISTORY AND PHYSICAL [id number] TRISTON DENIS recent exertional chest pain or palpitations. GASTROINTESTINAL: No recent nausea, vomiting, change in stools, blood per rectum or dysphagia. ENDOCRINE: Denies polyuria, polydipsia, heat or cold intolerance. NEUROLOGIC: No history of stroke, TIA, vascular headaches, or seizures. INTEGUMENT: No rash or itching. PSYCHIATRIC: Denies depressed mood. PHYSICAL EXAMINATION: GENERAL: Alert 53-year-old male at this time is in no acute distress. VITAL SIGNS: His temperature is 98.2 Fahrenheit orally, pulse is 98 and regular, respirations are 18, blood pressure 112/75 with a sat of 98% on room air. HEENT: Normocephalic. Eyes are clear. Nose is unremarkable. Throat is clear. CHEST: Faint wheezes on forced expiration bilaterally. No rales. HEART: Regular rate without MGR. PMI appropriate. No rub noted. ABDOMEN: Soft. Liver, kidneys, and spleen not palpable. Nontender. GENITOURINARY: Deferred. EXTREMITIES: No CC&E. NEUROLOGICAL: Oriented to person, place, and time. Cranial nerves are intact. No motor deficits appreciated. Gait was not tested. LABORATORY AND DIAGNOSTIC DATA: EKG shows sinus rhythm with no acute changes. CBC is normal. Chemistry shows potassium of 3.1, glucose 191 nonfasting. Cardiac enzymes were negative initially. INR is 0.98. Dr. Mason performed chest x-ray and a CTA in the Emergency Room showing no pulmonary emboli, 4.3 cm ascending thoracic aortic aneurysm, unchanged in size from previous. ASSESSMENT: 1. Rest chest pain, suspicious of angina. 2. Normal cardiac catheterization in February [address] [facility] except for thoracic aneurysm that is stable from a size standpoint, hypertension, hyperlipidemia, asthma, gastroesophageal reflux disease, remote esophageal candidiasis, fatty liver, post-cholecystectomy. PLAN: The patient will have serial cardiac enzymes. Place on O2, home medications for current symptoms. Cardiology consult. TRANSINT:[id number] Voice Confirmation ID: [id number] DOCUMENT ID: [id number] MERLYN HALL MD at 0951 CC: [id number] DICTATION DATE: 08/24/19 1337 SWITCHING CLERK: 08/24/19 1545 ADM IN [place] [id number] [place] [id number]
[2019-08-25] MEDS ORDERED: ASPIRIN325 MG PO (14:52)
--- NOTE | 2019-08-25 16:20 | NUR ---
REVIEWED DISCHARGE INSTRUCTIONS WITH PT STATES UNDERSTANDING COPY GIVEN DCD SALINE LOCK TO RAC WITH IV CATHETER INTACT SITE FREE OF REDNESS OR EDEMA PT DISCHARGED HOME IN STABLE CONDITION WITH ALL PERSOAL BELONGINGS LEFT UNIT VIA W/C
--- NOTE | 2019-08-26 09:40 | EC ---
PATIENT:FELIZ DENIS DATE OF SERVICE: 08/24/19 SEX: M MEDICAL RECORD: [id number] DATE OF : 65 LOCATION:D.M2 D.211 AGE OF PATIENT: 53 ADMISSION DATE: 08/24/19 REFERRING PHYSICIAN: INTERPRETING PHYSICIAN: SARAH MUÑIZ MD ECHOCARDIOGRAM REPORT ECHO CHARGES 4 ECHO COMPLETE Date: 08/25/19 CLINICAL DIAGNOSIS: CP ECHOCARDIOGRAPHIC MEASUREMENTS (adult normal given) AC root (d.<3.7cm) 3.2 cm LV Septum d (<1.2 cm> 1.2 cm Valve Excursion 1.9 cm LV Septum (systole) 1.7 cm Left Atria (s.<4.0cm> 4.5 cm LVPW d(<1.2cm) 0.9 cm RV (d.<2.3cm) 3.0 cm LVPW (sytole) 1.0 cm LV diastole(<5.6CM) 5.5 cm MV E-F(>70mm/sec) cm LV systole 3.9 cm LVOT Diameter 2.0 cm MV exc.(>10mm) cm Est.ejection fraction (50-75%) % DOPPLER: LVIT cm/sec A 87 cm/sec E 102 cm/sec LA cm/sec RVSP 37.7 mmHg LVOT 121 cm/sec AOP1/2T m/s Asc. Ao 140 cm/sec RVOT 96 cm/sec RA cm/sec PA 115 cm/sec AV Gradient Peak 7.9 mmHg AV Mean 4.1 mmHg AV Area 3.0 cm MV Gradient Peak 5.9 mmHg MV Mean 3.1 mmHg MV Area cm COMMENTS: Housekeeper Caregiver: Roberto COLEMAN Ship Construction Teacher: 4 Dr. Muñiz TAPE# PACS Pericardial Effusion Y DATE OF SERVICE: TRANSTHORACIC ECHOCARDIOGRAM FINDINGS: Left ventricle is normal size, shape, structure, and function. There is evidence of mild left ventricular hypertrophy. Inflow characteristics are normal. There is no obvious regional wall motion abnormality. Left atrium is mildly to moderately dilated. ECHOCARDIOGRAM REPORT [id number] FELIZ DENIS Aortic valve is normal. Mitral valve is normal. Tricuspid regurgitation. RVSP appears to be normal. Right ventricle is mildly enlarged, but normal function. Right atrium is mildly enlarged but normal function. Pulmonic valve is grossly normal. There is a trace pericardial effusion without tamponade physiology. TRANSINT:[id number] Voice Confirmation ID: [id number] DOCUMENT ID: [id number] SARAH MUÑIZ MD at 0940 CC: [id number] DICTATION DATE: 08/25/19 1747 FUEL OPERATOR: 08/26/19 0236 DIS IN 08/25/19 [facility] [address] [place] [place] [id number]
== END 2019-08-25 16:20 | disposition home or self-care (01) | DRG 313 ==
LOC: D.ER 08:56 → OBSVTIME 10:41 → D.M2 10:41
PROVIDERS: Family Medicine; ADMIT Family Medicine; ATTEND Family Medicine
DX: R07.9 Chest pain, unspecified (principal); I10 Essential (primary) hypertension; E78.5 Hyperlipidemia, unspecified; J45.909 Unspecified asthma, uncomplicated; K21.9 Gastro-esophageal reflux disease without esophagitis; K76.0 Fatty (change of) liver, not elsewhere classified; I71.2 Thoracic aortic aneurysm, without rupture

== ENCOUNTER → 2020-06-23 13:11 | Outpatient (CLI) | payer BC ==
[2019-08-24 17:33] VITALS: BMI 27.9
[~2020-06-23 13:11] MED LIST changes: +ASPIRIN325 MG PO
== END | disposition home or self-care (01) ==
LOC: D.CT 13:11
PROVIDERS: ATTEND Family Medicine
DX: I71.2 Thoracic aortic aneurysm, without rupture (principal); R06.00 Dyspnea, unspecified

== ENCOUNTER → 2020-08-20 14:39 | Outpatient (CLI) | payer BC ==
[2019-08-24 17:33] VITALS: BMI 27.9
== END | disposition home or self-care (01) ==
LOC: D.RAD 14:39
PROVIDERS: ATTEND Internal Medicine Pulmonary Disease
DX: J45.909 Unspecified asthma, uncomplicated (principal)